=== PATIENT | female | born 1975 | race Caucasian/White ===

== ENCOUNTER → 2023-07-30 | Outpatient (REF) | payer OTHER ==
[2023-07-30 17:05] LABS: APPEARANCE, URINE HAZY (CLEAR); BACTERIA, URINE AUTO 2+ (NEGATIVE); BILIRUBIN, URINE AUTO NEGATIVE (NEGATIVE); BLOOD, URINE BLOOD NEGATIVE (NEGATIVE); COLOR, URINE YELLOW (YELLOW); GLUCOSE, URINE (UA) AUTO NEGATIVE (NEGATIVE); KETONE, URINE AUTO NEGATIVE (NEGATIVE); LEUKOCYTE ESTERASE, URINE AUTO NEGATIVE (NEGATIVE); MUCUS, URINE SMALL (NEGATIVE); NITRITE, URINE AUTO NEGATIVE (NEGATIVE); PROTEIN, URINE AUTO NEGATIVE (NEGATIVE); RBC, URINE AUTO 0 /HPF (0-3); SPECIFIC GRAVITY URINE AUTO 1.003 (1.002-1.035); SQUAMOUS EPITHELIAL CELL UR AU 3 /HPF (0-6); UROBILINOGEN, URINE AUTO 0.2 mg/dL (0.0-2.0); WBC, URINE AUTO 2 /HPF (0-3)
== END ==
LOC: M LAB REF 16:20
PROVIDERS: ATTEND Physician Assistant
DX: N39.0 Urinary tract infection, site not specified (principal)

== ENCOUNTER → 2024-01-05 | Outpatient (CLI) | payer OTHER | LOC: M WHC 11:52 | PROVIDERS: ATTEND Nurse Practitioner Primary Care | DX: Z12.31 Encounter for screening mammogram for malignant neoplasm of breast (principal) ==

== ENCOUNTER 2024-09-13 09:01 | Day surgery (SDC) | payer OTHER ==
[~2024-09-13] VITALS: Ht 162.6 cm; Wt 77.1 kg
[~2024-09-13 09:01] MED LIST: ADDE10CA3 PO; ARIP1TAB4 PO; BACL10TA2 PO; COLA100C5 PO; FLON1SPR; HYDR-3363 PO; K2 P1TAB PO; LEVOTAB10 PO; LYRI150C PO; MELO15TA28 PO; PANT-23 PO; PROG1CAP9 PO; ROSU40TA81 PO; SERT50TA29 PO; TRAZ-252 PO
[2024-09-13] MEDS ORDERED: propofoL 200 MG/20 ML VIAL As Ordered ONE (10:50)
[2024-09-13 10:55] VITALS: TEMP 96.8
[2024-09-13 11:19] VITALS: BP 115/73; O2SAT 97
== END 2024-09-13 11:20 | disposition home or self-care (01) ==
LOC: M OPP 09:01
PROVIDERS: ATTEND Internal Medicine Gastroenterology
DX: K22.70 Barrett's esophagus without dysplasia (principal); R12 Heartburn; Z88.8 Allergy status to other drugs, medicaments and biological substances; Z91.048 Other nonmedicinal substance allergy status; Z79.899 Other long term (current) drug therapy; F17.290 Nicotine dependence, other tobacco product, uncomplicated